=== PATIENT | male | born 1995 | race Caucasian/White ===

== ENCOUNTER 2018-05-17 18:20 | Inpatient (IN) ==
--- NOTE | 2018-05-17 18:44 | ED ---
HPI General Chief Complaint: Medical Clearance Stated Complaint: Poss OD/Pysch Eval Time Seen by Provider: 05/17/18 18:34 Source: patient and EMS Mode of arrival: EMS Limitations: no limitations History of Present Illness HPI Narrative: 23-year-old male complains of generalized malaise and sleepiness. Patient has history of bipolar disorder. Patient was feeling depressed. Patient was feeling suicidal. Patient ingested between 10 and 13 pills of Benadryl 25 mg each about 2 hours prior to arrival. Patient took a small amount of NyQuil in addition to that. EMS was called. Patient was brought in for evaluation. Patient denies any headache. Patient denies any chest pain or shortness of breath. patient denies abdominal pain. She denies any focal weakness or numbness of extremity. Patient denies any alcohol abuse. Patient denies any illicit drug abuse. Patient states he smoked marijuana occasionally. complaint: Reports intentional overdose Onset (ago): hour(s) Time: 16:40 Timing confirmed by: other (Patient) Benadryl: Strength of Substance: 25 Number of Pills Ingested: 13 Total Dose: 325 Time of Ingestion: 16:40 Intent: suicide attempt How Overdose Was Discovered: called family/friend Associated symptoms: depression Treatments Prior to Arrival: none Related Data Previous Rx's Medication Instructions Recorded carbamazepine 100 mg PO DIRECTED #90 tab 05/23/18 Allergies Allergy/AdvReac Type Severity Reaction Status Date / Time No Known Allergies Allergy Verified 05/17/18 18:44 Review of Systems ROS: all other systems reviewed are negative PMFSH History History Provided By: Patient and Performance Improvement Consultant / EMT Social History Social History Substance History: No History of Abuse Second Hand Smoke Exposure: Yes Smoking Status: Current every day smoker Tobacco Type: Cigarettes How Often Do You Have a Drink Containing Alcohol: 2 to 3 times a week Recent Travel in [facility] within the Last 8 Weeks: No Exam Narrative Exam Narrative: GENERAL: Well-nourished, well-developed patient. SKIN: Focused skin assessment warm/dry. HEAD: Normocephalic. EYES: No scleral icterus. No injection or drainage. NECK: Supple, trachea midline. No JVD or lymphadenopathy. CARDIOVASCULAR: Regular rate and rhythm without murmurs, gallops, or rubs. RESPIRATORY: Breath sounds equal bilaterally. No accessory muscle use. GASTROINTESTINAL: Abdomen soft, non-tender, nondistended. MUSCULOSKELETAL: No cyanosis, or edema. BACK: Nontender without obvious deformity. No CVA tenderness. Neurologic exam: Patient is awake and alert oriented x3. No obvious focal neurologic deficit. Course Initial Documented Vital Signs Temperature 98.2 F 05/17/18 18:40 Pulse Rate 88 05/17/18 18:40 Respiratory Rate 18 05/17/18 18:40 Blood Pressure 150/89 H 05/17/18 18:40 Pulse Oximetry 97 05/17/18 18:40 Last Documented Vital Signs Temperature 98.1 F 05/23/18 04:56 Pulse Rate 57 L 05/23/18 04:56 Respiratory Rate 16 05/23/18 04:56 Blood Pressure 102/58 L 05/23/18 04:56 Pulse Oximetry 95 05/23/18 04:56 Medical Decision Making MDM Narrative Medical decision making narrative: 33-year-old male who intentionally took overdose on Benadryl. Poison control contacted. 20 1:52 PM. Patient is medically cleared for psychiatric evaluation and disposition. Medical Screen Exam Complete: Yes Emergency Medical Condition: Yes Differential Diagnosis Differential Diagnosis: Differential diagnosis including depression, suicidal. Lab Data Lab results reviewed: Yes I reviewed the patient's lab results. Result diagrams: 05/17/18 19:00 05/19/18 07:42 Lab Results 05/17/18 05/17/18 05/17/18 Range/Units 19:00 19:00 19:00 WBC 8.5 (4.0-11.0) th/mm3 RBC 5.04 (4.50-5.90) mil/mm3 Hgb 15.4 (13.0-17.0) gm/dL Hct 45.3 (39.0-51.0) % MCV 90.0 (80.0-100.0) fL MCH 30.6 (27.0-34.0) pg MCHC 34.0 (32.0-36.0) % RDW 12.9 (11.6-17.2) % Plt Count 188 (150-450) th/mm3 MPV 8.5 (7.0-11.0) fL Neut % (Auto) 73.0 H (16.0-70.0) % Lymph % (Auto) 16.9 (9.0-44.0) % Mckenzie % (Auto) 8.2 H (0.0-8.0) % Eos % (Auto) 1.3 (0.0-4.0) % Baso % (Auto) 0.6 (0.0-2.0) % Neut # (Auto) 6.2 (1.8-7.7) th/mm3 Lymph # (Auto) 1.4 (1.0-4.8) th/mm3 Mckenzie # (Auto) 0.7 (0.0-0.9) th/mm3 Eos # (Auto) 0.1 (0.0-0.4) th/mm3 Baso # (Auto) 0.1 (0.0-0.2) th/mm3 WBC Differential . Differential Comment Auto diff final Sodium 138 (136-145) meq/L Potassium 3.5 (3.5-5.1) meq/L Chloride 104 (98-107) meq/L Carbon Dioxide 25.7 (21.0-32.0) meq/L Anion Gap 8 (5-15) meq/L BUN 13 (7-18) mg/dL Creatinine 1.01 (0.60-1.30) mg/dL Estimated GFR Greater than 89 (>89) mL/min Random Glucose 78 (74-106) mg/dL Hemoglobin A1c (4.3-6.0) % Calcium 8.9 (8.5-10.1) mg/dL Total Bilirubin 0.5 (0.2-1.0) mg/dL AST 14 L (15-37) U/L ALT 19 (12-78) U/L Alkaline Phosphatase 56 (45-117) U/L Total Protein 7.8 (6.4-8.2) g/dL Albumin 4.1 (3.4-5.0) g/dL Triglycerides (42-150) mg/dL Cholesterol (120-200) mg/dL LDL Cholesterol, Calc (0-99) mg/dL HDL Cholesterol (40.0-60.0) mg/dL Cholesterol/HDL Ratio Ratio Salicylates (2.8-20.0) mg/dL Urine Opiates Screen Neg (Neg) Acetaminophen Less than 2.0 L (10.0-30.0) mcg/mL Ur Barbiturates Screen Neg (Neg) Carbamazepine (4.0-12.0) mcg/mL Ur Amphetamines Screen Neg (Neg) U Benzodiazepines Scrn Neg (Neg) Urine Cocaine Screen Neg (Neg) U Cannabinoids Screen Neg (Neg) Serum Alcohol 55 H (0-5) mg/dL 05/17/18 05/19/18 05/19/18 Range/Units 19:10 07:42 07:42 WBC (4.0-11.0) th/mm3 RBC (4.50-5.90) mil/mm3 Hgb (13.0-17.0) gm/dL Hct (39.0-51.0) % MCV (80.0-100.0) fL MCH (27.0-34.0) pg MCHC (32.0-36.0) % RDW (11.6-17.2) % Plt Count (150-450) th/mm3 MPV (7.0-11.0) fL Neut % (Auto) (16.0-70.0) % Lymph % (Auto) (9.0-44.0) % Mckenzie % (Auto) (0.0-8.0) % Eos % (Auto) (0.0-4.0) % Baso % (Auto) (0.0-2.0) % Neut # (Auto) (1.8-7.7) th/mm3 Lymph # (Auto) (1.0-4.8) th/mm3 Mckenzie # (Auto) (0.0-0.9) th/mm3 Eos # (Auto) (0.0-0.4) th/mm3 Baso # (Auto) (0.0-0.2) th/mm3 WBC Differential Differential Comment Sodium 138 (136-145) meq/L Potassium 4.2 (3.5-5.1) meq/L Chloride 103 (98-107) meq/L Carbon Dioxide 28.7 (21.0-32.0) meq/L Anion Gap 6 (5-15) meq/L BUN 15 (7-18) mg/dL Creatinine 1.06 (0.60-1.30) mg/dL Estimated GFR 88 L (>89) mL/min Random Glucose 82 (74-106) mg/dL Hemoglobin A1c 5.1 (4.3-6.0) % Calcium 9.3 (8.5-10.1) mg/dL Total Bilirubin (0.2-1.0) mg/dL AST (15-37) U/L ALT (12-78) U/L Alkaline Phosphatase (45-117) U/L Total Protein (6.4-8.2) g/dL Albumin (3.4-5.0) g/dL Triglycerides 107 (42-150) mg/dL Cholesterol 130 (120-200) mg/dL LDL Cholesterol, Calc 44 (0-99) mg/dL HDL Cholesterol 64.7 H (40.0-60.0) mg/dL Cholesterol/HDL Ratio 2.00 Ratio Salicylates Less than 1.7 L (2.8-20.0) mg/dL Urine Opiates Screen (Neg) Acetaminophen (10.0-30.0) mcg/mL Ur Barbiturates Screen (Neg) Carbamazepine (4.0-12.0) mcg/mL Ur Amphetamines Screen (Neg) U Benzodiazepines Scrn (Neg) Urine Cocaine Screen (Neg) U Cannabinoids Screen (Neg) Serum Alcohol (0-5) mg/dL 05/22/18 Range/Units 08:20 WBC (4.0-11.0) th/mm3 RBC (4.50-5.90) mil/mm3 Hgb (13.0-17.0) gm/dL Hct (39.0-51.0) % MCV (80.0-100.0) fL MCH (27.0-34.0) pg MCHC (32.0-36.0) % RDW (11.6-17.2) % Plt Count (150-450) th/mm3 MPV (7.0-11.0) fL Neut % (Auto) (16.0-70.0) % Lymph % (Auto) (9.0-44.0) % Mckenzie % (Auto) (0.0-8.0) % Eos % (Auto) (0.0-4.0) % Baso % (Auto) (0.0-2.0) % Neut # (Auto) (1.8-7.7) th/mm3 Lymph # (Auto) (1.0-4.8) th/mm3 Mckenzie # (Auto) (0.0-0.9) th/mm3 Eos # (Auto) (0.0-0.4) th/mm3 Baso # (Auto) (0.0-0.2) th/mm3 WBC Differential Differential Comment Sodium (136-145) meq/L Potassium (3.5-5.1) meq/L Chloride (98-107) meq/L Carbon Dioxide (21.0-32.0) meq/L Anion Gap (5-15) meq/L BUN (7-18) mg/dL Creatinine (0.60-1.30) mg/dL Estimated GFR (>89) mL/min Random Glucose (74-106) mg/dL Hemoglobin A1c (4.3-6.0) % Calcium (8.5-10.1) mg/dL Total Bilirubin (0.2-1.0) mg/dL AST (15-37) U/L ALT (12-78) U/L Alkaline Phosphatase (45-117) U/L Total Protein (6.4-8.2) g/dL Albumin (3.4-5.0) g/dL Triglycerides (42-150) mg/dL Cholesterol (120-200) mg/dL LDL Cholesterol, Calc (0-99) mg/dL HDL Cholesterol (40.0-60.0) mg/dL Cholesterol/HDL Ratio Ratio Salicylates (2.8-20.0) mg/dL Urine Opiates Screen (Neg) Acetaminophen (10.0-30.0) mcg/mL Ur Barbiturates Screen (Neg) Carbamazepine 4.2 (4.0-12.0) mcg/mL Ur Amphetamines Screen (Neg) U Benzodiazepines Scrn (Neg) Urine Cocaine Screen (Neg) U Cannabinoids Screen (Neg) Serum Alcohol (0-5) mg/dL Discharge Plan Discharge Disposition Patient Disposition: 01 Discharge Home Discharge Condition Condition: Fair Discharge Order Discharge Orders: Discharge Order (Routine); Ordered 05/23/18 Ordered By: Vaughn Dior Discharge Details Anticipated Discharge Date: 05/23/18 Physicians Team ED Provider: Aram Cortez Primary Care Provider: Primary Care May Sanford Attending Provider: Vaughn Dior Other Providers: Traceyr High Service Status ED Status: Left Department Discharge Information Discharge Date/Time: 05/18/18 10:56
[2018-05-17 19:16] LABS: Baso # (Auto) 0.1 th/mm3 (0.0-0.2); Baso % (Auto) 0.6 % (0.0-2.0); Eos # (Auto) 0.1 th/mm3 (0.0-0.4); Eos % (Auto) 1.3 % (0.0-4.0); Hematocrit 45.3 % (39.0-51.0); Hemoglobin 15.4 gm/dL (13.0-17.0); Lymph # (Auto) 1.4 th/mm3 (1.0-4.8); Lymph % (Auto) 16.9 % (9.0-44.0); Mean Corpuscular Hemoglobin 30.6 pg (27.0-34.0); Mean Platelet Volume 8.5 fL (7.0-11.0); Mono # (Auto) 0.7 th/mm3 (0.0-0.9); Mono % (Auto) 8.2 % (0.0-8.0); Neut # (Auto) 6.2 th/mm3 (1.8-7.7); Platelet Count 188 th/mm3 (150-450); Red Blood Count 5.04 mil/mm3 (4.50-5.90); Red Cell Distribution Width 12.9 % (11.6-17.2); White Blood Count 8.5 th/mm3 (4.0-11.0)
[2018-05-17 19:27] LABS: Amphetamine Screen,Urine Neg (Neg); Barbiturate Screen,Urine Neg (Neg); Cannabinoid Screen,Urine Neg (Neg); Cocaine Screen,Urine Neg (Neg)
[2018-05-17 19:34] LABS: Albumin 4.1 g/dL (3.4-5.0); Anion Gap 8 meq/L (5-15); Aspartate Aminotransferase 14 U/L (15-37); Blood Urea Nitrogen 13 mg/dL (7-18); Calcium 8.9 mg/dL (8.5-10.1); Carbon Dioxide 25.7 meq/L (21.0-32.0); Chloride 104 meq/L (98-107); Glomerular Filtration Rate Greater Than 89 mL/min (>89); Glucose,Random 78 mg/dL (74-106); Potassium 3.5 meq/L (3.5-5.1); Sodium 138 meq/L (136-145)
[2018-05-17 19:35] LABS: Alanine Aminotransferase 19 U/L (12-78)
[2018-05-17 19:37] LABS: Alkaline Phosphatase 56 U/L (45-117); Total Protein 7.8 g/dL (6.4-8.2)
[2018-05-17 19:50] LABS: Alcohol 55 mg/dL (0-5); Opiate Screen,Urine Neg (Neg)
--- NOTE | 2018-05-18 09:57 | ECG ---
Date Performed: 05/17/2018 Time Performed: 19:16:30 PTAGE: 23 years EKG: Sinus rhythm POSSIBLE LEFT ATRIAL ENLARGEMENT POSSIBLE RIGHT VENTRICULAR CONDUCTION DELAY BORDERLINE ECG NO PREVIOUS TRACING DOCTOR: Jeancarlos Park Interpretating Date/Time 05/18/2018 09:57:07
[2018-05-18] MEDS ORDERED: Acetaminophen 325 MG Tablet PO PRN (10:57)
[2018-05-18] MEDS ORDERED: Aluminum/Magnesium/Simethacone Susp 30 ML UDC PO PRN (10:57)
[2018-05-19 08:25] LABS: Calcium 9.3 mg/dL (8.5-10.1); Carbon Dioxide 28.7 meq/L (21.0-32.0); Potassium 4.2 meq/L (3.5-5.1)
[2018-05-19 08:28] LABS: HDL Cholesterol 64.7 mg/dL (40.0-60.0)
[2018-05-19] MEDS ORDERED: Aluminum/Magnesium/Simethacone Susp 30 ML UDC PO PRN (10:50)
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
[2018-05-19] MEDS: carBAMazepine 100 MG Chewable Tablets PO SCH ×2 (12:05→21:16)
[2018-05-19 12:41] LABS: Hemoglobin A1c 5.1 % (4.3-6.0)
[2018-05-20] MEDS: carBAMazepine 100 MG Chewable Tablets PO SCH ×2 (09:36→21:37)
--- NOTE | 2018-05-20 10:25 | P.PNPSY ---
Subjective Chief Complaint: New Admission - Suicidal Attempt via overdose Remarks: Patient seen in day room with floor staff, chart reviewed, patient compliant medicine. Patient shows somewhat increased and elevated mood today speech rate and rhythm are slightly increased. He denies suicidality homicidality voice or visions. He is showing no significant problems with the Tegretol. For now continue treatment Review of Systems All other systems reviewed negative except as stated in HPI Mental Status Examination Appearance: Appropriate (Dressed in Hospital Gown, Found in Community Room, Interviewed in Patient's Room, Good Posture) Consciousness: Alert Orientation: x4 Motor Activity: Normal gait Speech: Unremarkable Language: Adequate Fund of Knowledge: Adequate Attention and Concentration: Adequate Memory: Immediate (intact), Recent (intact), Remote (intact) Mood: Appropriate ("Happy. I'm glad I'm finally going to get the help I need.") , Good Affect: Appropriate, Sad (Tearful at times when discussing Suicide Attempt and Relationship Problems) Thought Process & Associations: Intact, Logical, Linear Thought Content: Appropriate Hallucination Type: None Delusion Type: None Suicidal Ideation: No (None at time of interview) Suicidal Plan: No Suicidal Intention: No Homicidal Ideation: No Homicidal Plan: No Homicidal Intention: No Insight: Adequate Judgment: Impulsive Assessment and Plan - Assessment (1) Adjustment disorder with mixed disturbance of emotions and conduct Code(s): F43.25 - Adjustment disorder with mixed disturbance of emotions and conduct Status: Acute - Plan Plan: Patient is a somewhat elevated mood but overall calm cooperative with no behavior problems. Compliant medication. For now continue treatment Justification for Continued Inpatient Stay: At this time patient would decompensate a place to a lower level of care Discharge Planning: To be determined Request Healthcare Surrogate/Guardian Advocate?: No
[2018-05-21] MEDS: carBAMazepine 100 MG Chewable Tablets PO SCH ×2 (08:40→21:56)
--- NOTE | 2018-05-21 15:05 | P.PNPSY ---
Subjective Chief Complaint: New Admission - Suicidal Attempt via overdose Remarks: Reviewed electronic medical records and discussed case with staff. Follow-up was conducted in the hallway with LEONARD Cruz present. Nurse reports that he has been compliant with his medications and had no behavioral disturbances. She does note that he is asking about discharge. Patient reports his mood is good his affect is certainly seem to be euthymic. When asked about side effects he does report an increase in energy. He states that he sleeping well and his appetite's been good. He states that he believes that "Tegretol is helping". Mental Status Examination Appearance: Appropriate (Dressed in Hospital Gown, Found in Community Room, Interviewed in Patient's Room, Good Posture) Consciousness: Alert Orientation: x4 Motor Activity: Normal gait Speech: Unremarkable Language: Adequate Fund of Knowledge: Adequate Attention and Concentration: Adequate Memory: Immediate (intact), Recent (intact), Remote (intact) Mood: Appropriate ("Happy. I'm glad I'm finally going to get the help I need.") , Good Affect: Appropriate, Sad (Tearful at times when discussing Suicide Attempt and Relationship Problems) Thought Process & Associations: Intact, Logical, Linear Thought Content: Appropriate Hallucination Type: None Delusion Type: None Suicidal Ideation: No (None at time of interview) Suicidal Plan: No Suicidal Intention: No Homicidal Ideation: No Homicidal Plan: No Homicidal Intention: No Insight: Adequate Judgment: Impulsive Assessment and Plan - Assessment (1) Adjustment disorder with mixed disturbance of emotions and conduct Code(s): F43.25 - Adjustment disorder with mixed disturbance of emotions and conduct Status: Acute - Plan Plan: Patient will be reevaluated Wednesday by the attending psychiatrist. Continue with current treatment plan. Justification for Continued Inpatient Stay: Moving this patient to a less restrictive environment would likely result in decompensation. Request Healthcare Surrogate/Guardian Advocate?: No
[2018-05-21 17:15] VITALS: RESP 16
[2018-05-22] MEDS: carBAMazepine 100 MG Chewable Tablets PO SCH ×2 (08:24→21:39)
--- NOTE | 2018-05-22 13:26 | P.PNPSY ---
Subjective Chief Complaint: New Admission - Suicidal Attempt via overdose Remarks: Reviewed electronic medical records and discussed case with staff. Follow-up was conducted in the dayroom. Patient is complaining of a headache. I offered him tylenol, but he feels it will pass. He stated that he believes that he is going to be discharged tomorrow. He has some anxiety. He has spoken to his girlfriend who is and he feels that everything will work out. He is cooperative, calm and in no distress. Denies SI/HI. Review of Systems All other systems reviewed negative except as stated in HPI Mental Status Examination Appearance: Appropriate Consciousness: Alert Orientation: x4 Motor Activity: Normal gait Speech: Unremarkable Language: Adequate Fund of Knowledge: Adequate Attention and Concentration: Adequate Memory: Unremarkable Mood: Appropriate ("Happy. I'm glad I'm finally going to get the help I need.") , Good Affect: Appropriate, Sad Thought Process & Associations: Intact, Logical, Linear Thought Content: Appropriate Hallucination Type: None Delusion Type: None Suicidal Ideation: No Suicidal Plan: No Suicidal Intention: No Homicidal Ideation: No Homicidal Plan: No Homicidal Intention: No Insight: Adequate Judgment: Adequate Assessment and Plan - Assessment (1) Adjustment disorder with mixed disturbance of emotions and conduct Code(s): F43.25 - Adjustment disorder with mixed disturbance of emotions and conduct Status: Acute - Plan Plan: Patient will be reevaluated Wednesday by the attending psychiatrist. Continue with current treatment plan. Justification for Continued Inpatient Stay: Moving patient to a less restrictive environment may result in his decompensation. Request Healthcare Surrogate/Guardian Advocate?: No
[2018-05-23 04:56] VITALS: BP 102/58; PULSE 57; TEMP 98.1; O2SAT 95
[2018-05-23] MEDS: carBAMazepine 100 MG Chewable Tablets PO SCH (08:21)
--- NOTE | 2018-05-23 12:43 | P.DSPSY ---
Psychiatry Discharge Summary Inpatient Psychiatric care?: Yes Advance Directives: No Mental Health Advance Directive: No Health Care Proxy: No - Admission Admission Date: May 18, 2018 06:16 - Admission Diagnosis (1) Adjustment disorder with mixed disturbance of emotions and conduct Code(s): F43.25 - Adjustment disorder with mixed disturbance of emotions and conduct Brief History: Mr. Bailon is a 23yo Man who is a new admission from the ED for suicidal attempt via benadryl, nyquil, alcohol overdose in the context of Bipolar I and Adjustment Disorder with Mixed Emotional Disturbances. PPHx: Hx of Volatile/Impulsive Outbursts, Hospitalized for SI in 2009 at [facility] ([place]) and was placed on psych med but cannot recall name of medication, has not taken any psych med since 2010, not followed by psych or PCP; SurgHx: Deviated Septum Correction; Meds: None; Allergies: NKDA; Social: Domicile with Fiance (22yo Stripper) in [place], Good Relationship with Mother who lives in [facility], Weekly Income ~ $300; Substance: 1/ 2PPD Cigarettes, Marijuana Daily, EtOH 4-5 beers 2-3x weekly, Denies excessive drinking or blacking out. Mr. Argueta was found in the community room and interviewed in his private room and appears pleasant and cooperative. He states that he was brought to ED after attempting suicide following a fight with his fiance. He reports "she constantly attacks my ego, tells me I'm not a real man and can't support a family because I don't make a lot of money right now, which makes me feel hopeless. She is a stripper so she is the bread winner." He states that they have been together 1yr 2mo and that she is 1.5mo and admits that he knows their relationship is "toxic". Following the argument she dropped him off at his Mother's house where he ingested 10-13 Benadryl, Nyquil, and EtOH (SENA = 55 in ED), called his fiance and told her what he did, and eventually vomitted before coming to ED via EMS. He denies any HI and states "I've thought about suicide before but this is the first time I've acted on it because I just couldn 't take it anymore." He endorses a long Hx of impulsivity, volatile outbursts, punching odom, throwing objects, and emotional outbursts. Also endorses episodes of depression, mood fluctuations, racing thoughts, hyperactivity, talkativeness, risky sexual behavior, and decreased need for sleep. He denies any Hx of auditory/visual/tactile hallucinations, delusions, or current SI/HI at time of interview. He endorses EtOH, 1/2 PPD Cigarettes, and Marijuana use but denies IV Drug Use, Opiates, Cocaine, or other illicit substances. He states that he is "happy to be here, I'm finally going to get the help I need." He wishes to be started on the right medications and get assistance with setting up outpatient psychiatric care and counseling to assist him with his Anger, Coping and Communication Strategies, and Impulsive Outbursts. He plans to live with his Mother when he leaves and wishes to break things off with his Fiance but hopes to maintain a functional relationship with her for the sake of their child. Tobacco Use In Past 30 Days: Yes How Often Do You Have a Drink Containing Alcohol: 2 to 3 times a week Hospital Course: Patient's hospital course was uneventful, he showed no behavioral problems throughout stay, has been compliant with his medications. Tegretol level drawn on 05/22 came back at 4.2. We will increase Tegretol 200 mg a.m. 200 mg at bedtime and suggest a Tegretol level to be drawn in approximately 1 week to follow-up with the clinician through [place] act - Discharge Discharge Date: 05/23/18 - Discharge Diagnosis (1) Adjustment disorder with mixed disturbance of emotions and conduct Diagnosis: Principal Code(s): F43.25 - Adjustment disorder with mixed disturbance of emotions and conduct Status: Acute Discharge Disposition: Home - Discharge Instructions Discharge Diet: Regular Diet Activities You Can Perform: Regular- No Restrictions - Discharge Time > 30 minutes Mental Status Examination Appearance: Appropriate Consciousness: Alert Orientation: x4 Motor Activity: Normal gait Speech: Unremarkable Language: Adequate Fund of Knowledge: Adequate Attention and Concentration: Adequate Memory: Unremarkable Mood: Appropriate ("Happy. I'm glad I'm finally going to get the help I need.") , Good Affect: Appropriate, Sad Thought Process & Associations: Intact, Logical, Linear Thought Content: Appropriate Hallucination Type: None Delusion Type: None Suicidal Ideation: No Suicidal Plan: No Suicidal Intention: No Homicidal Ideation: No Homicidal Plan: No Homicidal Intention: No Insight: Adequate Judgment: Adequate Discharge/Advance Care Plan - Results Vital Signs: Last Vital Signs Temp 98.1 F 05/23/18 04:56 Pulse 57 L 05/23/18 04:56 Resp 16 05/23/18 04:56 BP 102/58 L 05/23/18 04:56 Pulse Ox 95 05/23/18 04:56 Lab Results: Laboratory Results Hemoglobin A1c 5.1 % (4.3-6.0) 05/19/18 07:42 Triglycerides 107 mg/dL (42-150) 05/19/18 07:42 Cholesterol 130 mg/dL (120-200) 05/19/18 07:42 LDL Cholesterol, Calc 44 mg/dL (0-99) 05/19/18 07:42 HDL Cholesterol 64.7 mg/dL (40.0-60.0) H 05/19/18 07:42 Summary of Procedures: None done Pending Results: None (Would suggest that outpatient clinician draw Tegretol blood level to check results of increased Tegretol daily dose) - Medications Number of antipsychotic medications at discharge: 0 - Discharge Care Plan Goals to Promote Your Health: * To prevent worsening of your condition and complications * To maintain your health at the optimal level Directions to Meet Your Goals: Take your medications as prescribed Follow your dietary instruction Follow activity as directed Keep your appointments as scheduled Take your immunizations and boosters as scheduled If your symptoms worsen call your PCP, if no PCP go to Urgent Care Center or Emergency Room For 01/03 questions related to your inpatient stay or results of tests pending at discharge, please contact Dr. Vaughn Dior MD at Smoking is Dangerous to Your Health. Avoid second hand smoking
--- NOTE | 2018-05-23 15:57 | P.TTN ---
- Patient Problems Problems: 1. Discharge planning 2. Medication compliance 3. Knowledge deficit 4. Lack of coping skills - Progress Toward Goals Provider Present: Dr. Sidney Dior, Dr. Osmany Wade Provider Input: 05/23/18: Discharge home today Nurse(s) Present: Amy VALLE Nurse Input: 05/23/18: Med Complianr, Treatment Cooperative. Psychiatric Counselors Present: Domenic Cabral Jr., [facility], Cathy Solano, [facility] Psychiatric Therapist Input: 05/23/18: Discharge home today with outpatient services. Group Spec/RT/OT/HERNANDEZ Present: PATRICIA Abarca, Satish Bhat, OT Group Spec/RT/OT/HERNANDEZ Input: 05/23/18: Pleasant and cooperative. Attends the group activities with good participation. Social with peers. - Discharge Plan 05/23/18: Discharge home today with outpatient services. - Documentation Scribe: Juliana Schmid Teaching Recipient: Patient
== END 2018-05-23 15:30 | disposition home or self-care (01) ==
LOC: NEPD 18:20 → NEDA 05-18 06:16 → H260 05-18 10:13
PROVIDERS: ADMIT Psychiatry & Neurology Psychiatry; ATTEND Psychiatry & Neurology Psychiatry